=== PATIENT | female | born 2005 | race Hispanic/Latino ===

== ENCOUNTER 2025-03-19 16:31 | Emergency (ER) | payer OTHER ==
[~2025-03-19] VITALS: Ht 154.9 cm; Wt 49.9 kg
[2025-03-19 16:50] VITALS: PULSE 106; RESP 16; TEMP 98
[2025-03-19 18:00] VITALS: BP 113/72; PULSE 102; RESP 18; O2SAT 100
== END 2025-03-19 17:37 | disposition home or self-care (01) ==
LOC: ER 16:40
DX: R00.2 Palpitations (principal); R35.0 Frequency of micturition; T43.615A Adverse effect of caffeine, initial encounter; Y92.89 Other specified places as the place of occurrence of the external cause; R94.31 Abnormal electrocardiogram [ECG] [EKG]
CPT/HCPCS: 93005; 99282